=== PATIENT | male | born 1985 | race Caucasian/White ===

== ENCOUNTER → 2021-10-11 | Emergency (ER) | payer OTHER ==
[~2021-10-11] VITALS: Ht 167.6 cm; Wt 68.0 kg
== END | disposition home or self-care (01) ==
LOC: ER 19:10
DX: S61.412A Laceration without foreign body of left hand, initial encounter (principal); W25.XXXA Contact with sharp glass, initial encounter; Y93.G1 Activity, food preparation and clean up; Y92.010 Kitchen of single-family (private) house as the place of occurrence of the external cause; Y99.9 Unspecified external cause status

== ENCOUNTER 2021-10-21 08:32 | Emergency (ER) | payer OTHER ==
[~2021-10-21] VITALS: Ht 167.6 cm; Wt 68.0 kg
== END 2021-10-21 09:23 | disposition home or self-care (01) ==
LOC: ER 08:32
DX: Z48.02 Encounter for removal of sutures (principal); Z91.013 Allergy to seafood